=== PATIENT | female | born 1950 | race Caucasian/White ===

== ENCOUNTER 2022-08-26 10:05 | Emergency (ER) | payer MEDICARE, SELFPAY ==
[2022-08-26 10:37] VITALS: BP 170/93; PULSE 83; RESP 15; TEMP 36.4; O2SAT 96; BMI 22.0
--- NOTE | 2022-08-26 10:42 | ED_ITS ---
HPI - Female Genitourinary General Chief complaint: Urogenital-Female Stated complaint: bladder problem,mahmood t-2 Time Seen by Provider: 08/26/22 10:14 History of Present Illness HPI Narrative: 71-year-old female nonsmoker with noncontributory medical history presents with her in the chief complaint of upwards of 1 week of dysuria, frequency and urgency. She denies any vaginal bleeding or discharge. She denies fever or chills. She denies any headache, blurred vision, dizziness or lightheadedness. She has no chest pain, shortness of breath or cough. She denies back pain. Related Data Home Medications Medication Instructions Recorded Confirmed CA PANTOTHENATE/FOLIC ACID/VIT 1 tab PO QDAY ##0 08/24/12 (MULTIVITAMIN) Fish Oil (Fish Oil 500 MG Softgel) 500 mg PO Q DAY ##0 08/24/12 VITAMIN B COMPLEX (Vitamin B 1 tab PO QDAY ##0 08/24/12 Complex) BORON/CA/CU/MG/MN/VIT D/ZINC 1 tab PO Q DAY ##0 09/20/12 (#CALCIUM 600 + MINERALS) CHOLECALCIFEROL (VITAMIN D) 2,000 units PO QDAY ##0 11/07/12 Previous Rx's Medication Instructions Recorded amitriptyline 25 mg tablet 25 mg PO HS #30 tabs 08/06/17 sulfamethoxazole 800 1 tab PO BID 7 days #14 tabs 08/26/22 mg-trimethoprim 160 mg tablet (Bactrim DS) Allergies Allergy/AdvReac Type Severity Reaction Status Date / Time ibuprofen [IBUPROFEN] Allergy Mild BLISTER ON Verified 08/26/22 10:43 LIP penicillin V [PENICILLIN V] Allergy Mild Verified 08/26/22 10:43 tetracycline [TETRACYCLINE] Allergy Mild RASH Verified 08/26/22 10:43 Review of Systems Review of Systems Narrative: GENERAL: Denies chills, fatigue, malaise, fever, sweats. HEENT: Denies sinus pain, ear pain, sore throat, difficulty swallowing, dizziness. RESPIRATORY: Denies dyspnea, cough, wheezing, hemoptysis, sputum. CARDIOVASCULAR: Denies chest pain, palpitations, orthopnea, edema, GASTROINTESTINAL: Denies nausea, vomiting, abdominal pain, diarrhea, constipation, melena. : See HPI MUSCULOSKELETAL: denies weakness, joint pain, or bony pain SKIN: Denies rash, skin lesions, or other NEUROLOGIC: Denies weakness, headache, numbness, change in speech, confusion, seizures, incoordination. PSYCHIATRIC: No concerning psychosocial issues. 12 point review of systems is negative except for those stated above Patient History Surgical History (Updated 01/11/18 @ 04:58 by Madonna Chi DO) History of hip replacement (06/08/06) History of hip replacement Family History (Updated 11/21/14 @ 00:00 by Madonna Chi DO) Mother Age: 92 OA (osteoarthritis) of knee Exam Narrative Exam Narrative: GENERAL: [71] year old patient appears stated age. Well-developed patient, in mild distress. HEAD: Atraumatic. Normocephalic. EYES: Pupils equal round and reactive. Extraocular motions intact. No scleral icterus. No injection or drainage. ENT: Nose without bleeding, purulent drainage. Throat without erythema, tonsillar hypertrophy or exudate. Airway patent. NECK: Trachea midline. Non tender CARDIOVASCULAR: Regular rate and rhythm without murmurs, gallops, or rubs. RESPIRATORY: Clear to auscultation. Breath sounds equal bilaterally. No wheezes, rales, or rhonchi. GASTROINTESTINAL: Abdomen soft, non-tender, nondistended. EXTREMITIES: No edema or joint tenderness. BACK: Nontender without deformity or crepitance. No flank tenderness. NEURO: AOx3. SKIN: No rash or erythema of visible areas Initial Vital Signs Initial Vital Signs: Vital Signs Temperature 97.5 F L 08/26/22 10:37 Pulse Rate 83 08/26/22 10:37 Respiratory Rate 15 08/26/22 10:37 Blood Pressure 170/93 H 08/26/22 10:37 Pulse Oximetry 96 08/26/22 10:37 Oxygen Delivery Method 08/26/22 10:37 Course Orders Ordered: ED Orders 08/26/22 11:20 Urine Microscopic Stat Vital Signs Vital signs: Vital Signs - 8 hr 08/26/22 10:37 Temperature 97.5 F L Pulse Rate 83 Respiratory Rate 15 Blood Pressure 170/93 H Pulse Oximetry 96 Oxygen Delivery Method Room Air MDM - Female Genitourinary Lab Data Labs: Urine Dip Bedside Urine Glucose Negative Bedside Urine Bilirubin - Negative Bedside Urine Ketone +/- 5 Urine Specific [place] 1.010 Bedside Urine Occult Blood +/- Bedside Urine pH 7.5 Bedside Urine Protein +/- 15 Bedside Urine Urobilinogen - Negative Bedside Urine Nitrite - Negative Bedside Urine Leukocytes ++ 125 Esterase MDM Narrative Medical decision making narrative: 71-year-old female without chronic medical history presents with upwards of 1 week of dysuria, frequency and urgency. Multiple diagnoses considered including urinary infection, vaginal infection or other. Urine POC is classic for UTI. She has no systemic complaints such as fever, chills, vomiting or back pain. Will send antibiotic to her pharmacy of choice. Return precautions discussed and questions answered to her apparent satisfaction Discharge Plan Departure Patient Disposition: Home Clinical Impression: Urinary tract infection Instructions: DI for Urinary Tract Infection (UTI) Activity Restrictions/Additional Instructions: *You have been diagnosed with [urinary tract infection] *What to do: *Please continue to take your regular medications as directed. [x ] New medication prescriptions sent to your pharmacy: [[facility] ] [ ] New medication written as a paper prescription [ ] No new medications given *Please follow up with your primary care provider in 2-3 days, call for an appointment. Let them know you were seen in the Emergency Department and that we ask that you be seen in follow up. *If you do not have a primary care provider please contact the [facility] Resource line at [phone]. They will ask some questions about your medical history and help get you set up with a doctor in the community. *Return to Emergency Department if you should have any new, worsening or concerning symptoms, such as [fever greater than 101 F, shaking chills, worsening pain, persistent vomiting or other bothersome symptoms] Prescriptions: New sulfamethoxazole-trimethoprim [Bactrim DS] 800-160 mg tablet 1 tab PO BID 7 Days Qty: 14 0RF No Action CA PANTOTHENATE/FOLIC ACID/VIT (MULTIVITAMIN) 1 tab PO QDAY Qty: 0 Fish Oil (Fish Oil 500 MG Softgel) 500 mg PO Q DAY Qty: 0 VITAMIN B COMPLEX (Vitamin B Complex) 1 tab PO QDAY Qty: 0 BORON/CA/CU/MG/MN/VIT D/ZINC (#CALCIUM 600 + MINERALS) 1 tab PO Q DAY Qty: 0 CHOLECALCIFEROL (VITAMIN D) 2,000 units PO QDAY Qty: 0 amitriptyline 25 MG tablet 25 mg PO HS Qty: 30 3RF Referrals: Miscellaneous,Doctor, MD [Primary Care Provider] -
[2022-08-26 12:19] LABS: Bacteria Urine Moderate (10-30); RBC Urine 5-10/HPF (0-5/HPF); WBC Urine 30-100/HPF (0-5/HPF)
[2022-08-26 12:20] LABS: Culture Indicated Urine Specimen Cultured
--- NOTE | 2022-08-27 15:10 | PC.NURSE ---
Pt called reporting Bactrim is causing GI upset and diarrhea. Dr Mcgill made aware. Order for Cipro 500mg BID X 7 days to [place] [facility] called in for pt. Advised to DC the Bactrim
== END 2022-08-26 11:37 | disposition home or self-care (01) ==
PROVIDERS: Emergency Provider Emergency Medicine
DX: N39.0 Urinary tract infection, site not specified (principal)
CPT/HCPCS: 81003; 81015; 87077; 87086; 87186; 99281; 99282

== ENCOUNTER → 2022-09-08 13:29 | Outpatient (CLI) | payer MEDICARE, SELFPAY | PROVIDERS: PCP Family Medicine; Visit Provider Family Medicine | DX: R30.0 Dysuria (principal) | CPT/HCPCS: 87086 ==

== ENCOUNTER → 2024-07-25 13:39 | Outpatient (CLI) | payer MEDICARE, SELFPAY | PROVIDERS: PCP Family Medicine; Visit Provider Family Medicine | DX: R30.0 Dysuria (principal) | CPT/HCPCS: 87086 ==

== ENCOUNTER → 2024-07-25 14:25 | Outpatient (CLI) | payer MEDICARE, SELFPAY ==
[2024-07-25 15:12] LABS: Add Manual Diff / Slide Review NO; Basophils Absolute Auto 100 /uL (0-100); Basophils Percent Auto 0.4 % (0-2); Eosinophils Absolute Auto 0 /uL (0-450); Hematocrit 42.5 % (36-46); Hemoglobin 14.7 g/dL (12.0-16.0); Lymphocytes Absolute Auto 700 /uL (1100-4500); Lymphocytes Percent Auto 4.8 % (25-40); Mean Corpuscular HGB Conc 34.6 % (30-36); Mean Corpuscular Hemoglobin 33.3 PG (26-34); Mean Corpuscular Volume 96.5 fL (80-100); Monocytes Absolute Auto 1800 /uL (0-900); Monocytes Percent Auto 11.9 % (3-14); Neutrophils Absolute Auto 12700 /uL (1500-7000); Neutrophils Percent Auto 82.9 % (50-75); Platelet Count 161 X10^3/uL (150-400); White Blood Cell Count 15.4 X10^3/uL (4.5-11.0)
[2024-07-25 15:28] LABS: Alanine Aminotransferase 27 IU/L (<35); Albumin 4.5 g/dL (3.5-5.0); Albumin Globulin Ratio 1.3 (1.0-2.8); Alkaline Phosphatase 59 U/L (38-126); Aspartate Aminotransferase 30 IU/L (14-36); Bilirubin Total 0.9 mg/dL (0.2-1.3); Blood Urea Nitrogen 14 mg/dL (7-17); Calcium 9.6 mg/dL (8.4-10.2); Carbon Dioxide 28 mmol/L (22-32); Chloride 96 mmol/L (98-107); Cholesterol 157 mg/dL (140-199); Estimated Glomerular Filt Rate > 60 mL/min (>60); Globulin 3.5 g/dL (1.7-4.1); Glucose 125 mg/dL (80-110); HDL Cholesterol 84 mg/dL (40-60); HEMOLYSIS < 15 (0-50); LDL Cholesterol Calculated 62 mg/dL (<100); Potassium 4.3 mmol/L (3.4-5.1); Sodium 134 mmol/L (137-145); Triglycerides 57 mg/dL (35-150)
[2024-07-26 19:32] LABS: Hep C Virus Ab w/Reflex Quant NEGATIVE s/c (NEGATIVE)
== END ==
PROVIDERS: PCP Family Medicine; Referring Provider Family Medicine; Visit Provider Family Medicine
DX: E78.5 Hyperlipidemia, unspecified (principal); N39.0 Urinary tract infection, site not specified; R53.82 Chronic fatigue, unspecified; R30.0 Dysuria; Z11.59 Encounter for screening for other viral diseases
CPT/HCPCS: 36415; 80053; 80061; 85025; 86803; 87077; 87086; 87186